=== PATIENT | female | born 1950 | race Caucasian/White ===

== ENCOUNTER 2018-06-01 10:08 | Emergency (ER) | payer MEDICARE, OTHER ==
[~2018-06-01] VITALS: Ht 165.1 cm; Wt 69.4 kg
[2018-06-01] MEDS ORDERED: MOBIC15 MG PO (10:33)
[2018-06-01] MEDS ORDERED: ATORVASTATIN CA40 MG PO (10:33)
[2018-06-01] MEDS ORDERED: COZAAR 50 MG TA50 M1 PO (10:33)
[2018-06-01 10:56] LABS: ABSOLUTE BASOPHILS 0.1 thou/uL (0.0-0.2); ABSOLUTE EOSINOPHILS 0.3 thou/uL (0.0-0.7); ABSOLUTE LYMPHOCYTES 1.2 thou/uL (0.8-5.3); ABSOLUTE MONOCYTES 0.5 thou/uL (0.0-1.2); ABSOLUTE NEUTROPHILS 4.5 thou/uL (1.6-8.1); BASOPHILS 0.9 %; HEMATOCRIT 44.3 % (37.0-47.0); HEMOGLOBIN 14.9 gm/dL (12.0-15.0); LYMPHOCYTES 18.8 %; MCH 31.2 pg (26.0-34.0); MCHC 33.7 g/dL (28.0-37.0); MCV 92.5 fL (80.0-100.0); MONOCYTES 8.1 %; MPV 10.2 fl. (7.2-11.1); NUCLEATED RBCS 0 /100WBC; PLATELET COUNT* 232 thou/uL (150-400); POLYS 68.2 %; RBC 4.79 mil/uL (4.20-5.00); RDW-CV 13.6 % (10.5-14.5); WBC 6.6 thou/uL (4.0-11.0)
[2018-06-01 11:09] LABS: ANION GAP 8 mmol/L (7-16); BUN 13 mg/dL (7-18); CALCIUM 9.3 mg/dL (8.5-10.1); CHLORIDE 103 mmol/L (98-107); CO2 31 mmol/L (21-32); CREATININE 0.7 mg/dL (0.6-1.3); GLUCOSE 107 mg/dL (70-99); POTASSIUM 3.5 mmol/L (3.5-5.1); SODIUM 142 mmol/L (136-145)
[2018-06-01 11:14] LABS: ALBUMIN 4.1 g/dL (3.4-5.0); ALKALINE PHOSPHATASE 138 U/L (46-116); LIPASE 117 U/L (73-393); NT-PRO BRAIN NAT PEPTIDE 49 pg/mL (<300); SGOT 18 U/L (15-37); SGPT 24 U/L (30-65); TOTAL BILIRUBIN 0.4 mg/dL (<0.1-1.0); TOTAL PROTEIN 7.4 g/dL (6.4-8.2); TROPONIN-I LEVEL <0.06 ng/mL (<0.06)
[2018-06-01 12:31] VITALS: BP 140/77
--- NOTE | 2018-06-01 15:01 | EKG ---
[place] [address] ELECTROCARDIOGRAM REPORT Name: CHUCK DONOHUE Room: [facility]#: [id number] Admission: 06/01/18 Attend Phys: Discharge: 06/01/18 Date of : 46 Report #: [id number] THIS REPORT FOR: //name// [facility] ED Test Date: 2018-06-01 Test Time: 10:17:14 Pat Name: CHUCK DONOHUE Department: Room: Gender: F Process Improvement Analyst: LEELEE : 1950 Requested By: Tucker Martínez Order Number: [id number] MD: Allne Vance Measurements Intervals [place] Rate: 92 P: 60 [place]: 162 QRS: -2 QRSD: 84 T: 47 QT: 355 QTc: 440 Interpretive Statements Sinus rhythm No previous ECG available for comparison Electronically Signed On 06-01-2018 15:01:28 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 06/01/18 1501 [id number] Allen Vance MD, FACC /EPI
== END 2018-06-01 12:29 | disposition home or self-care (01) ==
LOC: M.ERS 10:08
PROVIDERS: Emergency Medicine
DX: M54.9 Dorsalgia, unspecified (principal); R68.84 Jaw pain; I10 Essential (primary) hypertension; E78.5 Hyperlipidemia, unspecified; Z90.710 Acquired absence of both cervix and uterus

== ENCOUNTER → 2018-06-02 | Outpatient (CLI) | payer MEDICARE, OTHER ==
[~2018-06-02] MED LIST: ATORVASTATIN CA40 MG PO; COZAAR 50 MG TA50 M1 PO; MOBIC15 MG PO
--- NOTE | 2018-06-02 14:19 | EXE ---
[place] [address] STRESS ECHOCARDIOGRAM Name: CHUCK DONOHUE Room: [facility]#: [id number] Admission: 06/02/18 Attend Phys: Tucker Martínez, Discharge: Date of : 46 Date of Service: 06/02/18 1419 Report #: [id number] THIS REPORT FOR: //name// APPROVED REPORT Study performed: 06/02/2018 11:12:20 Exam: Stress Echocardiogram Indication: Chest pain Patient Location: Out-Patient Stress Nurse: Steph Stevenson RN Supervising Physician: Dayday Garcia MD Ht: 5 ft 7 in HR: 99 bpm BP: 170/99 mmHg Medical History Cardiac Risk Factors: Hyperlipidemia, HTN Procedure The patient underwent an Exercise Stress Test using the Vel Protocol. Blood pressure, heart rate, and EKG were monitored. An Echocardiogram was performed by spring manufacturing set up technician in four stages in quad fashion. At peak stress, four selected images were obtained and placed side by side with resting images for comparison. Stress Test Details Stress Test: Exercise stress testing was performed using a Vel protocol. HR Resting HR: 99 bpm Max Heart Rate (APMHR): 151 bpm Max HR Achieved: 162 bpm Target HR (85% APMHR): 128 bpm % of APMHR: 107 Recovery HR: 104 bpm HR response to stress: Normal HR response to stress BP Resting BP: 170/99 mmHg Max BP: 200/78 mmHg Recovery BP: 153/83 mmHg BP response to stress: Normal blood pressure response to stress. ECG Resting ECG: Sinus Rhythm Stress ECG: [place] [address] STRESS ECHOCARDIOGRAM Name: CHUCK DONOHUE Room: [facility]#: [id number] Admission: 06/02/18 Attend Phys: Tucker Martínez, Discharge: Date of : 46 Date of Service: 06/02/18 1419 Report #: [id number] ST Change: none Arrhythmia: None Recovery ECG: Sinus Rhythm Recovery ST Change: none Recovery Arrhythmia: None Clinical Reason for Termination: Dyspnea, Maximal effort Exercise duration: 6 min 30 sec Highest Stage Achieved: Stage 3: 3.4 mph at 14% grade. Exercise capacity: 7.81 METs The patient tolerated status protocol exercise without significant symptoms. Stress ECG Conclusion The baseline 12-lead EKG shows sinus rhythm without significant ST or T wave abnormality. EKGs obtained during and post exercise showed sinus rhythm and sinus tachycardia with no significant ST or baseline. There were no stress-induced arrhythmias. Pre-Stress Echo The resting Echocardiogram showed normal left ventricular contractility with an estimated Ejection Fraction of about 55-60%. Post-Stress Echo The stress Echocardiogram showed normal left ventricular contractility with an estimated Ejection Fraction of about >70%. Clinical No clinical or ECG evidence for ischemia. Conclusion Clinical Response: Non-ischemic Exercise Capacity: Average Stress ECG Response: Non-ischemic Stress Echo Images: Non-ischemic Other Information Study Quality: Good <ELECTRONICALLY SIGNED> By: Dayday Garcia MD, FACC 06/02/18 1419 1419 1419 Dayday Garcia MD, FACC /INF
== END ==
LOC: M.CRD 10:43
DX: R07.89 Other chest pain (principal); M54.9 Dorsalgia, unspecified